=== PATIENT | male | born 1970 | race Two or more races ===

== ENCOUNTER 2017-11-22 18:29 | Emergency (ER) | payer SELFPAY ==
[~2017-11-22] VITALS: Ht 170.2 cm; Wt 72.0 kg
[2017-11-22] MEDS ORDERED: SODIUM CHLORIDE 0.9% 1,000 ML IV ONE (18:48)
[2017-11-22 19:17] LABS: HEMATOCRIT. 37.4 % (42.0-52.0); HEMOGLOBIN. 12.9 g/dL (14.0-18.0); MEAN CORPUSCULAR VOLUME 89.8 fL (80.0-94.0); MEAN PLATELET VOLUME 8.3 fl (7.4-10.4); PLATELET 229 x1000/uL (130-400); RED BLOOD CELL COUNT 4.16 mill/uL (4.7-6.1); RED CELL DISTRIBUTION WIDTH 13.7 % (11.6-14.6)
[2017-11-22 19:20] LABS: CHLORIDE 102 mEq/L (98-107)
[2017-11-22 19:24] LABS: ETHANOL BLOOD 120 mg/dL
[2017-11-22 19:29] LABS: CREATINE KINASE 482 IU/L (39-308)
[2017-11-22 19:50] LABS: PLATELET ESTIMATE NORMAL
[2017-11-22 23:17] LABS: BG BASE EXCESS -7.6 mmol/L (-2.0-2.0); BG CARBOXYHEMOGLOBIN 0.1 % (0.5-1.5); BG DEOXYHEMOGLOBIN 4.1 % (0.0-5.0); BG FRACTION INSPIRED OXYGEN 21; BG HCO3 ACT 18.9 mmol/L (22.0-26.0); BG METHEMOGLOBIN 0.2 % (0.0-1.5); BG OXYGEN SATURATION 95.9 % (92.0-98.5); BG OXYHEMOGLOBIN 95.6 % (94.0-97.0); BG PCO2 42.2 mmHg (35.0-45.0); BG PH 7.269 (7.350-7.450); BG PO2 94.2 mmHg (75.0-100.0); BG SAMPLE SITE RIGHT BRACHIAL; BG TOTAL HEMOGLOBIN 13.2 g/dL (12.0-18.0); BG VENT MODE ROOM AIR
[2017-11-23 02:27] LABS: CLARITY URINE CLEAR (CLEAR); COLOR URINE YELLOW (YELLOW); KETONES URINE NEGATIVE (NEGATIVE); LEUKOCYTE ESTERASE URINE NEGATIVE (NEGATIVE); NITRITE URINE NEGATIVE (NEGATIVE); OCCULT BLOOD URINE NEGATIVE (NEGATIVE); PROTEIN URINE NEGATIVE (NEGATIVE); SPECIFIC GRAVITY URINE 1.003 (1.005-1.030); UROBILINOGEN URINE 0.2 E.U./dL (0.2-1.0)
[2017-11-23 02:37] LABS: *AMPHETAMINES SCREEN URINE PRESUMTIVE POSITIVE (NEGATIVE); *BARBITURATES SCREEN URINE NEGATIVE (NEGATIVE); *BENZODIAZEPINES SCREEN URINE NEGATIVE (NEGATIVE); *COCAINE SCREEN URINE NEGATIVE (NEGATIVE)
[2017-11-23 02:38] LABS: CANNABINOID URINE SCREEN NEGATIVE (NEGATIVE); METHADONE URINE SCREEN NEGATIVE (NEGATIVE); OPIATES URINE SCREEN NEGATIVE (NEGATIVE); PHENCYCLIDINE URINE SCREEN NEGATIVE (NEGATIVE)
[2017-11-23 06:08] VITALS: BP 90/47
== END 2017-11-23 06:10 | disposition home or self-care (01) ==
LOC: ER 18:29 → EDBD 18:29 → ER 11-23 06:10
DX: F10.129 Alcohol abuse with intoxication, unspecified (principal); Y90.6 Blood alcohol level of 120-199 mg/100 ml; R94.31 Abnormal electrocardiogram [ECG] [EKG]
CPT/HCPCS: 36415; 36600; 70450; 71045; 80053; 80305; 80307; 80329; 81003; 82375; 82550; 82805; 82962; 85025; 93005; 96360; 99285; G0482; J7030; Z7610; A4315